=== PATIENT | male | born 1995 | race Caucasian/White ===

== ENCOUNTER 2018-02-22 22:24 | Emergency (ER) | payer OTHER ==
[~2018-02-22] VITALS: Ht 170.2 cm; Wt 73.9 kg
[2018-02-22 22:32] VITALS: Ht 170.2 cm; Wt 73.9 kg
[2018-02-23 00:08] VITALS: BP 128/68
== END 2018-02-23 00:08 | disposition home or self-care (01) ==
LOC: ED 22:24
DX: S62.306A Unspecified fracture of fifth metacarpal bone, right hand, initial encounter for closed fracture (principal); I10 Essential (primary) hypertension; W22.8XXA Striking against or struck by other objects, initial encounter; Y93.89 Activity, other specified; Y92.89 Other specified places as the place of occurrence of the external cause; Y99.8 Other external cause status